=== PATIENT | male | born 1985 | race African-American/Black ===

== ENCOUNTER 2018-05-30 20:58 | Emergency (ER) | payer OTHER, SELFPAY ==
[2018-05-30 21:36] VITALS: BP 116/67; PULSE 68; RESP 12; TEMP 37; O2SAT 98
--- NOTE | 2018-05-30 22:50 | PC.NURSE ---
patient reports that he thinks he was bitten by something 3 days ago.
--- NOTE | 2018-05-30 23:08 | DI.CT.S_ITS ---
PROCEDURE: CT SOFT TISSUE NECK W CON INDICATIONS: right-sided neck swelling concern for abscess TECHNIQUE: After the administration of intravenous contrast, 3.0 mm axial sections acquired from the sella to the aortic arch. Additional oblique axial 3.0 mm sections acquired through the pharynx. 3 mm thick coronal and sagittal reformats were generated. For radiation dose reduction, the following was used: automated exposure control. COMPARISON: None. FINDINGS: Image quality: Excellent. Lymph nodes: Enlarged right level IIa and IIb neck lymph nodes are noted with largest node measuring 1.6 cm in the short axis. Prominent right level III, level IV and level V neck lymph nodes are noted which do not meet pathologic size criteria. Vessels: Visualized vasculature appears patent. Neck spaces: The oropharynx, nasopharynx, and pharynx demonstrate no mucosal lesions. The vocal cords, false vocal cords, pyriform sinuses, epiglottis, vallecula, and tongue base all appear normal. Inflammatory stranding noted in the subcutaneous fat of the anterior-lateral right neck. There is mild thickening of the right platysma muscle. No abscess identified. Glands: The parotid and submandibular glands appear normal. Thyroid gland is within normal limits. Miscellaneous: Visualized brain and orbits appear normal. Lung apices appear clear. Superficial soft tissues appear normal. Mucosal thickening noted in the visualized maxillary sinuses. Bones: No suspicious bony lesions. Visualized mastoids appear unremarkable. IMPRESSION: 1. Findings consistent with right anterolateral neck cellulitis. 2. No abscess. 3. Right level II lymphadenopathy which could be reactive versus less likely neoplastic. 4. Bilateral maxillary sinus mucosal thickening. Dictated by: Coni Mathews MD, PhD on 05/31/2018 at 7:46 Approved by: Coni Mathews MD, PhD on 05/31/2018 at 7:51
--- NOTE | 2018-05-30 23:08 | ED_ITS ---
HPI - Ear Problem General Chief complaint: Ear Stated complaint: POSSIBLE INFECTION BEHIND RT EAR Time Seen by Provider: 05/30/18 22:49 Source: patient Mode of arrival: ambulatory Limitations: no limitations History of Present Illness HPI Narrative: 32-year-old male here for evaluation of pain and swelling behind his right ear. States that he started noticing it several days ago. Has not tried anything for it. It has worsened since then. Does have a scratchy throat but no other throat symptoms. No dental pain. Never had anything like this before. No trauma. 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 No trauma. Related Data Previous Rx's Medication Instructions Recorded clindamycin HCl 300 mg PO QID 10 Days #40 cap 05/31/18 Allergies Allergy/AdvReac Type Severity Reaction Status Date / Time No Known Drug Allergies Allergy Verified 05/30/18 21:39 Review of Systems Constitutional Denies fatigue, Denies fever(s) and Denies headache(s) Eyes Denies diplopia, Denies eye discharge and Denies itchy eyes ENT Ears, Nose, Mouth, and Throat: Denies abnormal hearing, Denies dental pain, Denies dysphagia, Denies vertigo, Denies dizziness, Reports otalgia, Denies facial pain, Denies headache(s), Denies hearing loss, Denies lip swelling, Denies nasal trauma, Reports neck mass, Reports neck pain, Denies sinus pressure , Reports sore throat ( scratchy ), Denies throat swelling and Denies tongue swelling Respiratory Denies chest congestion, Denies cough and Denies wheezing Gastrointestinal Gastrointestinal: Denies dysphagia Musculoskeletal Reports neck pain Integumentary/Breasts Denies lesions, Denies rash, Denies skin ulcer and Reports sores ( behind his right ear) Neurologic Denies abnormal hearing, Denies confusion, Denies vertigo, Denies dizziness and Denies headache(s) Psychiatric Denies confusion Endocrine Denies fatigue Hematologic/Lymphatic Denies easy bleeding and Denies easy bruising Allergic/Immunologic Denies urticaria, Denies itchy eyes, Denies lip swelling, Denies throat swelling , Denies tongue swelling and Denies wheezing Exam Initial Vital Signs Initial Vital Signs: Vital Signs Temperature 98.6 F 05/30/18 21:36 Pulse Rate 68 05/30/18 21:36 Respiratory Rate 12 05/30/18 21:36 Blood Pressure 116/67 05/30/18 21:36 Pulse Oximetry 98 05/30/18 21:36 Const General: cooperative, healthy appearing, comfortable, well developed and well groomed Nutritional Appearance: average body habitus Orientation: alert, awake and oriented x3 HENMT Ears: hearing grossly normal bilaterally and TM's normal bilaterally Nose: external nose normal Mouth: oral mucosae normal Teeth and gingiva: dentition normal Throat: uvula midline Eyes General: appearance normal, both eyes and all related structures Pupils: PERRL Neck Thyroid: thyroid normal Lymphatic: lymphadenopathy ( right posterior cervical) Resp Effort & Inspection: normal respiratory effort Auscultation: clear to auscultation bilaterally Skin Other: patient was swelling and tenderness to the posterior cervical region to include the inferior portion of his ear Low. No overlying cellulitis. Was tender however no fluctuance. No defined abscess felt. No breaks in the skin. Neuro General: alert, awake and oriented x3 Course Orders Ordered: ED Orders 05/30/18 23:08 CT soft tissue neck w con Stat 05/30/18 23:45 Basic Metabolic Panel Stat Complete Blood Count AUTO DIFF Stat Discontinued Medications Clindamycin HCl (Cleocin) 300 mg PO NOW ONE Stop: 05/31/18 00:51 Last Admin: 05/31/18 00:59 Dose: 300 mg Sodium Chloride (Normal Saline 0.9%) 1,000 mls @ 1,000 mls/hr IV BOLUS ONE Stop: 05/31/18 00:07 Last Infusion: 05/31/18 00:53 Dose: 0 mls/hr Admin: 05/30/18 23:21 Dose: 1,000 mls/hr Vital Signs - 8 hr 05/30/18 21:36 05/31/18 01:07 Temperature 98.6 F 97.2 F L Pulse Rate 68 63 Respiratory Rate 12 16 Blood Pressure 116/67 Blood Pressure [Left Arm] 114/67 Pulse Oximetry 98 97 Medical Decision Making MDM Narrative Medical decision making narrative: patient without any respiratory compromise. No signs of abscess seen on the CT scan. Patient was given 1st dose of antibiotics here in the emergency department and a prescription for antibiotics to take at home. No indication for incision and drainage. Patient was given return precautions. He expressed understanding and agreement with plan Lab Data Lab results reviewed: Yes I reviewed the patient's lab results. Result diagrams: 05/30/18 23:45 05/30/18 23:45 Lab Results 05/30/18 05/30/18 Range/Units 23:45 23:45 WBC 10.0 (4.5-11.0) X10^3/uL RBC 3.59 L (4.5-5.9) X10^6/uL Hgb 12.3 L (13.5-17.5) g/dL Hct 34.9 L (41-53) % MCV 97.2 (80-100) fL MCH 34.3 H (26-34) PG MCHC 35.3 (30-36) % RDW 13.0 (11.6-14.8) % Plt Count 153 (150-400) X10^3/uL Neut % (Auto) 47.9 L (50-75) % Lymph % (Auto) 31.4 (25-40) % [place] % (Auto) 14.5 H (3-14) % Eos % (Auto) 5.3 H (2-4) % Baso % (Auto) 0.9 (0-2) % Neut # (Auto) 4800 (3004-7253) /uL Sodium 137 (137-145) mmol/L Potassium 4.3 (3.4-5.1) mmol/L Chloride 101 (98-107) mmol/L Carbon Dioxide 27 (22-32) mmol/L BUN 14 (9-20) mg/dL Creatinine 1.30 H (0.66-1.25) mg/dL Estimated GFR > 60.0 (>60) mL/min BUN/Creatinine Ratio 10.8 (6-22) Glucose 89 (70-100) mg/dL Calcium 8.8 (8.4-10.2) mg/dL Imaging Data CT neck: Radiologist's impression: Discharge Plan Departure Patient Disposition: Home, Self-Care Clinical Impression: Neck swelling Discharge Date/Time: 05/31/18 01:24 Interventions: ED Discharge Assessment Last Done: 05/31/18 01:23 Instructions: DI for Lymphadenopathy Activity Restrictions/Additional Instructions: take all of the antibiotics as directed. Contact your medical department to schedule a follow-up appointment. You may return to the emergency department at any point for new symptoms, worsening symptoms, problems breathing, inability to take the antibiotics, or any other concerning symptoms Prescriptions: New clindamycin HCl 300 mg capsule 300 mg PO QID 10 Days Qty: 40 RF: 0
[2018-05-30] MEDS: SODIUM CHLORIDE 0.9% 1,000 ML 1000 ML IV (23:21)
[2018-05-30 23:51] LABS: Add Manual Diff / Slide Review NO; Basophils Percent Auto 0.9 % (0-2); Eosinophils Percent Auto 5.3 % (2-4); Hematocrit 34.9 % (41-53); Hemoglobin 12.3 g/dL (13.5-17.5); Lymphocytes Percent Auto 31.4 % (25-40); Mean Corpuscular HGB Conc 35.3 % (30-36); Mean Corpuscular Hemoglobin 34.3 PG (26-34); Mean Corpuscular Volume 97.2 fL (80-100); Monocytes Percent Auto 14.5 % (3-14); Neutrophils Absolute Auto 4800 /uL (3000-5900); Neutrophils Percent Auto 47.9 % (50-75); Platelet Count 153 X10^3/uL (150-400); Red Blood Cell Count 3.59 X10^6/uL (4.5-5.9)
[2018-05-31 00:04] LABS: BUN Creatinine Ratio 10.8 (6-22); Blood Urea Nitrogen 14 mg/dL (9-20); Calcium 8.8 mg/dL (8.4-10.2); Carbon Dioxide 27 mmol/L (22-32); Chloride 101 mmol/L (98-107); Estimated Glomerular Filt Rate > 60.0 mL/min (>60); Glucose 89 mg/dL (70-100); HEMOLYSIS 37 (0-50); Potassium 4.3 mmol/L (3.4-5.1); Sodium 137 mmol/L (137-145)
[2018-05-31] MEDS: CLINDAMYCIN 150 MG CAPSULE 300 MG PO (00:59)
[2018-05-31 01:07] VITALS: BP 114/67; PULSE 63; RESP 16; TEMP 36.2; O2SAT 97
== END 2018-05-31 01:24 | disposition home or self-care (01) ==
PROVIDERS: Emergency Provider Emergency Medicine
DX: R22.1 Localized swelling, mass and lump, neck (principal)
CPT/HCPCS: 70491; 80048; 85025; 96360; 99283; 99285; Q9967